=== PATIENT | female | born 1940 | race Two or more races ===

== ENCOUNTER → 2018-02-20 | Outpatient (CLI) | payer OTHER ==
[2018-02-20 12:33] LABS: Basophils # (auto) 0.1 uL; Eosinophils # (auto) 0.2 uL; Eosinophils % (auto) 2.9 % (0.0-7.0); Hematocrit 43.9 % (36.0-46.0); Hemoglobin 14.7 g/dL (12.2-16.2); Lymphocytes # (auto) 1.9 uL; Lymphocytes % (auto) 28.7 % (10.0-50.0); Mean Corpuscular Hemoglobin 28.2 pg (28.0-32.0); Mean Corpuscular Hgb Conc. 33.6 g/dL (32.0-36.0); Mean Corpuscular Volume 84.2 fL (80.0-100.0); Monocytes # (auto) 0.4 uL; Monocytes % (auto) 6.1 % (0.0-12.0); Neutrophils % (auto) 61.3 % (37.0-80.0); Nucleated Red Blood Cells % 0.1 %; Platelet Count (auto) 250 10^3/uL (140-450); Red Blood Cells 5.22 10^6/uL (4.0-5.20); Red Cell Distribution Width 14.5 % (11.8-14.3); White Blood Cell 6.5 10^3/uL (4.4-10.8)
[2018-02-20 12:50] LABS: Urine Bacteria NONE SEEN /hpf (None Seen); Urine Blood Negative /uL (Negative); Urine Mucus FEW (None Seen); Urine Specific Gravity 1.026 (1.001-1.035); Urine WBC 1 /hpf (0 - 5)
[2018-02-20 13:14] LABS: Calcium 8.6 mg/dL (8.5-10.1); Potassium 4.4 mmol/L (3.5-5.1); Total Protein 7.5 g/dL (6.4-8.2)
[2018-02-20 13:56] LABS: Albumin 3.7 g/dL (3.4-5.0); BUN/Creatinine Ratio 27.7; Bilirubin, Total 0.6 mg/dL (0.2-1.0)
== END | disposition home or self-care (01) ==
LOC: LAB 11:51
PROVIDERS: ATTEND Physician Assistant
DX: Z00.01 Encounter for general adult medical examination with abnormal findings (principal); E78.5 Hyperlipidemia, unspecified; M19.90 Unspecified osteoarthritis, unspecified site; R73.03 Prediabetes
CPT/HCPCS: 36415; 80053; 80061; 81001; 83036; 85025

== ENCOUNTER 2018-09-13 21:44 | Emergency (ER) | payer OTHER ==
[~2018-09-13] VITALS: Ht 157.5 cm; Wt 62.1 kg
[2018-09-13] MEDS ORDERED: LIDOCAINE W/ EPINEPHRINE 1 % INJ 30ML ONE (23:50)
[2018-09-14 00:12] VITALS: BP 162/79
[2018-09-14] MEDS ORDERED: cefTRIAXone SOD 1,000 MG VL IM ONE (00:30)
[2018-09-14] MEDS ORDERED: TETANUS-DIPTH-ACEL PERTUSSIS 0.5ML SYRG IM ONE (00:30)
[2018-09-14] MEDS ORDERED: ACETAMINOPHEN/CODEINE#3 (300/30mg) TAB PO ONE (00:45)
== END 2018-09-14 00:58 | disposition home or self-care (01) ==
LOC: ER 21:44
DX: S01.01XA Laceration without foreign body of scalp, initial encounter (principal); I10 Essential (primary) hypertension; W01.198A Fall on same level from slipping, tripping and stumbling with subsequent striking against other object, initial encounter; Y93.89 Activity, other specified; Y99.8 Other external cause status; Y92.89 Other specified places as the place of occurrence of the external cause
CPT/HCPCS: 12002; 70450; 90471; 90715; 96372; 99284; J0696; J2001

== ENCOUNTER 2020-10-05 12:24 | Emergency (ER) | payer OTHER ==
[~2020-10-05] VITALS: Ht 30.5 cm; Wt 68.0 kg
[2020-10-05] MEDS ORDERED: CALCIUM CHLOR(10%) 100MG/ML 10ML SYRINGE IV ONE (12:25)
[2020-10-05] MEDS ORDERED: SODIUM BICARBONATE 8.4% INJ 50ML SYRINGE IV ONE (12:25)
[2020-10-05] MEDS ORDERED: EPINEPHrine HCL 1 MG/10 ML SYRG IV ONE (12:25)
[2020-10-05] MEDS ORDERED: ETOMIDATE (2MG/ML) 20ML VIAL IV ONE (12:31)
[2020-10-05] MEDS ORDERED: SODIUM BICARBONATE 8.4 % INJ 50ML VIAL IV ONE (12:34)
[2020-10-05 12:39] VITALS: BP 148/115
[2020-10-05] MEDS ORDERED: EPINEPHrine HCL 250 ML IV ONE (12:54)
[2020-10-05] MEDS ORDERED: EPINEPHrine HCL 250 ML IV SCH (13:00)
[2020-10-05] MEDS ORDERED: DOPamine 1600MCG/ML D5W 250 ML IV ONE (13:00)
[2020-10-05 13:32] LABS: Basophils # (auto) 0.1 10 ^3/uL (0-0.2); Eosinophils # (auto) 0.3 10 ^3/uL (0-0.8); Eosinophils % (auto) 2.3 % (0.0-7.0); Hemoglobin 11.9 g/dL (12.2-16.2); Neutrophils # (auto) 5.6 10 ^3/uL (1.6-8.6)
[2020-10-05 13:37] LABS: Calcium 11.5 mg/dL (8.5-10.1); Magnesium 2.8 mg/dL (1.6-2.6); Potassium 3.9 mmol/L (3.5-5.1)
[2020-10-05 13:40] LABS: Bilirubin, Total 0.5 mg/dL (0.2-1.0); Total Protein 5.4 g/dL (6.4-8.2)
[2020-10-05 13:42] LABS: Basophils % (auto) 0.8 % (0.0-2.0); Hematocrit 38.9 % (36.0-46.0); Lymphocytes # (auto) 7.8 10 ^3/uL (0.4-5.4); Lymphocytes % (auto) 54.2 % (10.0-50.0); Mean Corpuscular Hemoglobin 26.9 pg (28.0-32.0); Mean Corpuscular Hgb Conc. 30.6 g/dL (32.0-36.0); Monocytes # (auto) 0.5 10 ^3/uL (0-1.3); Monocytes % (auto) 3.4 % (0.0-12.0); Neutrophils % (auto) 39.3 % (37.0-80.0); Nucleated Red Blood Cells % 0.4 %; Red Blood Cells 4.42 10^6/uL (4.0-5.20); Red Cell Distribution Width 16.3 % (11.8-14.3); White Blood Cell 14.3 10^3/uL (4.4-10.8)
[2020-10-05 13:47] LABS: BUN/Creatinine Ratio 6.1
[2020-10-05 13:52] LABS: Lactic Acid w/Reflex 18.4 mmol/L (0.4-2.0)
[2020-10-05 14:20] LABS: INR 1.27 (0.9-1.15); Partial Thromboplastin Time 35.6 sec (23.0-31.2)
== END 2020-10-05 13:09 ==
LOC: ER 12:24 → EDBD 12:24 → ER 13:09
DX: I46.9 Cardiac arrest, cause unspecified (principal)
CPT/HCPCS: 31500; 36415; 36556; 36600; 80053; 82805; 83605; 83735; 84484; 85025; 85379; 85610; 85730; 87040; 92950; 99285; J0171; 87077; 87186; 93005